=== PATIENT | female | born 1990 | race Two or more races ===

== ENCOUNTER → 2023-06-09 09:47 | Outpatient (REF) | payer OTHER, SELFPAY | LOC: PNTC 09:47 | PROVIDERS: ATTENDING PHYSICIAN Obstetrics & Gynecology | DX: Z36.0 Encounter for antenatal screening for chromosomal anomalies (principal) | CPT/HCPCS: 76801; 76813 ==

== ENCOUNTER 2023-11-04 18:09 | Observation (INO) | payer OTHER, SELFPAY ==
[2023-11-04 18:53] LABS: % Basophils 0.5 % (0-2); % Eosinophils 1.7 % (0-6); % Lymphocytes 15.9 % (20.5-51.1); % Monocytes 10.6 % (1.7-9.3); % Neutrophils 69.3 % (42.2-75.2); Absolute Basophils 0.1 10^3/uL (0-0.2); Absolute Eosinophils 0.2 10^3/uL (0-0.7); Absolute Immature Granulocytes 0.2 10^3/uL (0-0.05); Absolute Lymphocytes 1.6 10^3/uL (1.2-3.4); Absolute Monocytes 1.1 10^3/uL (0.1-0.6); Absolute Neutrophils 7.1 10^3/uL (1.4-6.5); Hematocrit 34.2 % (37.0-47.0); Hemoglobin 11.8 g/dL (12.0-16.0); Mean Corp Hgb Conc. 34.5 g/dL (33.0-37.0); Mean Corpuscular Volume 92.7 fL (81.0-99.0); Mean Platelet Volume 10.8 fL (7.4-10.4); Nucleated Red Blood Cells % 0 %; Platelet Count 216 10^3/uL (130-400); Red Blood Cell Count 3.69 10^6/uL (4.20-5.40); Red Cell Dist. Width 12.9 % (11.5-14.5); White Blood Cell Count 10.2 10^3/uL (4.8-10.8)
[2023-11-04 19:03] LABS: Urine Albumin Negative (Neg - Trace); Urine Bilirubin Negative (Negative); Urine Character Clear (Clear); Urine Color Yellow; Urine Glucose Negative (Negative); Urine Ketone Negative (Negative); Urine Leukocyte Trace (Negative); Urine Nitrite Negative (Negative); Urine Occult Blood Negative (Negative); Urine Specific Gravity 1.015 (<1.030); Urine Urobilinogen Negative (Neg - 1+)
[2023-11-04 19:06] LABS: ALT (SGPT) 21 U/L (0-35); AST (SGOT) 21 U/L (14-36); Albumin 3.2 g/dl (3.5-5.0); Alkaline Phosphatase 80 U/L (38-126); Blood Urea Nitrogen 10 mg/dl (7-17); COVID-19 Antigen Negative (Negative); Calcium 8.8 mg/dl (8.4-10.2); Carbon Dioxide 21 mmol/L (22-30); Chloride 107 mmol/L (98-107); Glucose 93 mg/dl (70-99); Sodium 132 mmol/L (135-145); Total Bilirubin 0.4 mg/dl (0.2-1.3); Total Protein 5.9 g/dl (6.3-8.2); eGFR > 60.00
[2023-11-04 19:14] LABS: Urine Squamous Cell >30 /LPF (Few)
[2023-11-04 19:15] LABS: Urine Bacteria Few (Negative); Urine Red Blood Cell 0-2 /HPF (0-2)
[2023-11-04 19:21] VITALS: BP 109/65; BMI 27.6
[2023-11-04 19:29] LABS: INR 0.98
[2023-11-04 19:31] LABS: APTT 25.3 Sec (23.4-35.0); Fibrinogen 339 MG/DL (199-459)
[2023-11-04 19:38] LABS: TSH Reflex To Free T4 1.45 uIU/ml (0.47-4.68)
[2023-11-04] MEDS: 0.45%NACL 500 IV (19:50)
== END 2023-11-04 20:48 | disposition home or self-care (01) ==
LOC: LDRP 18:09
PROVIDERS: ADMITTING PHYSICIAN Obstetrics & Gynecology; FAMILY PHYSICIAN Family Medicine
DX: R19.7 Diarrhea, unspecified (principal); R10.9 Unspecified abdominal pain; Z3A.34 34 weeks gestation of pregnancy; K64.4 Residual hemorrhoidal skin tags; Z86.16 Personal history of COVID-19; Z11.52 Encounter for screening for COVID-19
CPT/HCPCS: 80053; 81003; 81015; 84443; 85025; 85384; 85460; 85610; 85730; 86850; 86900; 86901; 87045; 87046; 87077; 87086; 87147; 87427; 87811; G0378

== ENCOUNTER 2023-12-06 20:25 | Inpatient (IN) | payer BC, SELFPAY ==
[2023-12-06 20:40] VITALS: BMI 27.6
[2023-12-06] MEDS: LR 1000 IV (20:45)
[2023-12-06 20:46] VITALS: BP 121/71
[2023-12-06 20:56] LABS: % Basophils 0.3 % (0-2); % Eosinophils 0.7 % (0-6); % Lymphocytes 11.3 % (20.5-51.1); % Monocytes 8.7 % (1.7-9.3); Absolute Basophils 0.1 10^3/uL (0-0.2); Absolute Eosinophils 0.1 10^3/uL (0-0.7); Absolute Immature Granulocytes 0.2 10^3/uL (0-0.05); Absolute Monocytes 1.5 10^3/uL (0.1-0.6); Absolute Neutrophils 13.6 10^3/uL (1.4-6.5); Hematocrit 35.9 % (37.0-47.0); Hemoglobin 12.4 g/dL (12.0-16.0); Mean Corp Hgb Conc. 34.5 g/dL (33.0-37.0); Mean Corpuscular Hgb 30.8 pg (27.0-31.0); Mean Corpuscular Volume 89.1 fL (81.0-99.0); Mean Platelet Volume 10.6 fL (7.4-10.4); Nucleated Red Blood Cells % 0 %; Platelet Count 180 10^3/uL (130-400); Red Blood Cell Count 4.03 10^6/uL (4.20-5.40); White Blood Cell Count 17.5 10^3/uL (4.8-10.8)
[2023-12-06] MEDS: PENICILLIN 110 UNITS IV (21:28)
[2023-12-06] MEDS: SUBLIMAZE 100 MCG EPIDURAL (21:44)
[2023-12-06] MEDS: XYLOCAINE-MPF 1% VIAL 30 ML INFIL (21:56)
[2023-12-06] MEDS: PITOCIN 30 UNITS/NSS 500 ML IV (21:56)
[2023-12-06] MEDS: MOTRIN 400 MG PO (22:52)
[2023-12-06] MEDS: TYLENOL ORAL SOLUTION 650 MG PO (23:15)
[2023-12-07] MEDS: TYLENOL ORAL SOLUTION 650 MG PO ×2 (05:16→16:37)
[2023-12-07] MEDS: MOTRIN 400 MG PO ×2 (05:33→12:10)
[2023-12-07 05:43] LABS: Hematocrit 37.4 % (37.0-47.0); Hemoglobin 12.8 g/dL (12.0-16.0)
[2023-12-08] MEDS: TYLENOL ORAL SOLUTION 650 MG PO (03:30)
[2023-12-08] MEDS: MOTRIN 400 MG PO (05:38)
[2023-12-08 11:25] LABS: Syphilis/T. pallidum Ab Reflex Negative (Negative)
== END 2023-12-08 12:59 | disposition home or self-care (01) | DRG 807 ==
LOC: LDRP 20:25
PROVIDERS: ADMITTING PHYSICIAN Student in an Organized Health Care Education/Training Program; ATTENDING PHYSICIAN Obstetrics & Gynecology
PROC: 10E0XZZ Delivery of Products of Conception, External Approach (ICD-10-PCS; 2023-12-06)
PROC: 0KQM0ZZ Repair Perineum Muscle, Open Approach (ICD-10-PCS; 2023-12-06)
DX: O99.824 Streptococcus B carrier state complicating childbirth (principal); Z37.0 Single live birth; Z3A.39 39 weeks gestation of pregnancy
CPT/HCPCS: 36415; 85014; 85018; 85025; 86780; 86850; 86900; 86901